=== PATIENT | male | born 1950 | race Caucasian/White ===

== ENCOUNTER 2018-12-13 18:14 | Emergency (ER) | payer OTHER, MEDICAID ==
[~2018-12-13] VITALS: Ht 165.1 cm; Wt 84.5 kg
[~2018-12-13 18:14] MED LIST: ACET-141 PO
[2018-12-13 18:31] VITALS: BP 163/85; PULSE 77; RESP 18; Ht 165.1 cm; Wt 84.5 kg
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
== END 2018-12-13 19:57 | disposition home or self-care (01) ==
LOC: E/R 18:14
DX: M54.6 Pain in thoracic spine (principal); I10 Essential (primary) hypertension; M54.2 Cervicalgia
CPT/HCPCS: 99282